=== PATIENT | male | born 1945 | race Caucasian/White ===

== ENCOUNTER 2017-05-13 13:24 | Outpatient (CLI) | payer MEDICARE, OTHER ==
[2005-08-19 16:04] VITALS: BP 149/81
[~2017-05-13] VITALS: Ht 175.3 cm; Wt 86.3 kg
[~2017-05-13 13:24] MED LIST: ASPIRIN E.C. 8181 MG PO; AVINZA60 MG PO; GLUCOPHAGE500 MG/TAB; GLUCOPHAGE500 MG/TAB PO; LASIX 20MG TABL20 MG PO; LIPITOR20 MG PO; NITROSTAT0.4 MG/TAB SL; TOPROL XL 25MG25 MG PO; ZESTRIL 5MG5 MG PO
[2017-05-13 13:57] VITALS: BP 134/65; PULSE 61
[2017-05-13 14:30] VITALS: BP 141/64; PULSE 64
[2017-05-13 14:45] VITALS: BP 141/64; PULSE 64
[2017-05-13 15:00] VITALS: BP 136/59; PULSE 58
[2017-05-13 15:15] VITALS: BP 135/71; PULSE 60
[2017-05-13 15:30] VITALS: BP 127/56; PULSE 60; TEMP 96.6
[2017-05-13 15:42] LABS: CSF APPEARANCE CLEAR; CSF COLOR COLORLESS
[2017-05-13 16:00] LABS: CSF POLYMORPHONUCLEAR 0 % (0-6)
[2017-05-13 16:04] LABS: CEREBROSPINAL TUBE #4
== END 2017-05-13 15:46 | disposition home or self-care (01) ==
LOC: COL.RAD 13:24
PROVIDERS: Psychiatry & Neurology Neurology
DX: G61.81 Chronic inflammatory demyelinating polyneuritis (principal); M62.81 Muscle weakness (generalized)

== ENCOUNTER 2017-05-28 12:00 | Outpatient (RCR) | payer MEDICARE, OTHER ==
[2005-08-19 16:04] VITALS: BP 149/81
[2017-05-25] VITALS (8 sets, daily range): BP systolic 110–130; BP diastolic 46–95; PULSE 51–60; TEMP 97.9–99
[2017-05-26] VITALS (9 sets, daily range): BP systolic 108–127; BP diastolic 45–82; PULSE 41–61; TEMP 97.8–98.9
[2017-05-27] VITALS (7 sets, daily range): BP systolic 117–143; BP diastolic 44–72; PULSE 51–55; TEMP 97–97.9
[~2017-05-28] VITALS: Ht 175.3 cm; Wt 85.3 kg
[~2017-05-28 12:00] MED LIST changes: +PRINIVIL5 MG PO
[2017-05-28 12:13] VITALS: BP 129/40; PULSE 50; TEMP 97.9
[2017-05-28 12:27] VITALS: BP 124/47; PULSE 49; TEMP 97.9
[2017-05-28 14:03] VITALS: BP 133/48; PULSE 50; TEMP 97.5
[2017-05-28 15:10] VITALS: BP 140/50; PULSE 50; TEMP 97.5
[2017-05-29] VITALS (13 sets, daily range): BP systolic 109–141; BP diastolic 41–75; PULSE 48–57; TEMP 97.8–97.9
== END 2017-05-29 18:52 | disposition home or self-care (01) ==
LOC: EUO 12:00 → MEDICAL 05-29 11:51 → EUO 05-29 18:52
DX: G61.81 Chronic inflammatory demyelinating polyneuritis (principal)
CPT/HCPCS: OP; J1200; J1459; J1569; J2930

== ENCOUNTER 2019-11-22 07:19 | Day surgery (SDC) | payer MEDICARE, OTHER ==
[2005-08-19 16:04] VITALS: BP 149/81
[~2019-11-22] VITALS: Ht 172.7 cm; Wt 72.3 kg
[2019-11-22] MEDS ORDERED: METHAVER 109 M1 EACH PO (08:03)
[2019-11-22] MEDS ORDERED: ELIQUIS 5MG PO (08:04)
[2019-11-22] MEDS ORDERED: ARYMO ER60 MG PO (08:05)
[2019-11-22] MEDS ORDERED: DEMADEX 20MG20 M1 PO (08:06)
[2019-11-22] MEDS ORDERED: PLAVIX 75MG TAB75 MG PO (08:07)
[2019-11-22 09:04] VITALS: BP 118/50; PULSE 60; TEMP 98
[2019-11-22 11:20] VITALS: BP 91/53; PULSE 60; TEMP 97.9
[2019-11-22 11:35] VITALS: BP 124/66; PULSE 60
[2019-11-22 11:50] VITALS: BP 98/34; PULSE 59
[2019-11-22 12:20] VITALS: BP 94/40; PULSE 60
--- NOTE | 2019-11-22 12:24 | NUR ---
1120 PATIENT RECIEVED TO [facility] VIA CART WITH KSENIA GARCIA AND TERESITA WELLINGTON. REPORT RECIEVED. DSG TO RLE NOTED TO BE CDI. RR EVNE AND UNLABORED. VSS. PATIENT REPORTS PAIN. RATES 10/21. 1130 NORCO 7.5MG PO GIVEN PER ORDER. PATIENT DRINKING PEPSI AND EATING PUDDING. VS REMAIN STBLE. PATIENT ALERT AND ORIENTED. 1200 PATIENT REPORTS CONTINUED PAIN, BUT REPORTS THAT IT IS IMPROVING.
[2019-11-22] MEDS ORDERED: NORCO 325 MG-51 TAB PO (12:34)
[2019-11-22 12:35] VITALS: BP 93/27; PULSE 60
--- NOTE | 2019-11-22 14:05 | NUR ---
1230 PATIENT ALERT AND ORIENTED. REPORTS IMPROVED COMFORT. IV DISCONTINUED. CATH INTACT. TOLERATED WELL. PATIENT GETTING SELF DRESSED. PATIENT'S AT BEDSIDE.
--- NOTE | 2019-11-22 14:07 | NUR ---
1300 PATIENT VOIDED APPROX 350 ML CLEAR, YELLOW URINE IN A URINAL. D/C'D TO POV VIA WHEELCHAIR WITH FAMILY. WRITEEN AND VERBAL DISCHARGE INSTRUCTIONS GIVEN TO PATIENT AND HIS . BOTH VERBALIZED UNDERSTANDING. QUESTIONS INVITED AND ANSWERED.
== END 2019-11-22 13:00 | disposition home or self-care (01) ==
LOC: SDCO 07:19
DX: L89.899 Pressure ulcer of other site, unspecified stage (principal); M00.9 Pyogenic arthritis, unspecified; I70.235 Atherosclerosis of native arteries of right leg with ulceration of other part of foot; E11.621 Type 2 diabetes mellitus with foot ulcer; I25.2 Old myocardial infarction; I13.0 Hypertensive heart and chronic kidney disease with heart failure and stage 1 through stage 4 chronic kidney disease, or unspecified chronic kidney disease; I50.9 Heart failure, unspecified; N18.9 Chronic kidney disease, unspecified; E11.22 Type 2 diabetes mellitus with diabetic chronic kidney disease; E78.00 Pure hypercholesterolemia, unspecified; F32.9 Major depressive disorder, single episode, unspecified; I34.0 Nonrheumatic mitral (valve) insufficiency; E78.5 Hyperlipidemia, unspecified; Z95.820 Peripheral vascular angioplasty status with implants and grafts; Z95.810 Presence of automatic (implantable) cardiac defibrillator; Z79.84 Long term (current) use of oral hypoglycemic drugs; Z95.1 Presence of aortocoronary bypass graft; Z79.899 Other long term (current) drug therapy; Z79.01 Long term (current) use of anticoagulants
CPT/HCPCS: J2250; J2704; J3010; J7030

== ENCOUNTER 2019-12-31 16:16 | Inpatient (IN) | payer MEDICARE, OTHER ==
[~2019-12-31] VITALS: Ht 172.7 cm; Wt 65.9 kg
[2019-12-31] VITALS (167 sets, daily range): BP systolic 114–120; BP diastolic 51–60; PULSE 70–72; TEMP 98–98.2; O2SAT 81–100
[~2019-12-31 16:16] MED LIST changes: +ARYMO ER60 MG PO; +DEMADEX 20MG20 M1 PO; +ELIQUIS 5MG PO; +METHAVER 109 M1 EACH PO; +NORCO 325 MG-51 TAB PO; +PLAVIX 75MG TAB75 MG PO
--- NOTE | 2019-12-31 17:30 | NUR ---
Patient arrives via stretcher with GCFD. Patient is transferred to ICU bed and monitors. Denies chest pain or pressure, does note mild dyspnea. VSS and as charted. Assessment as charted.
--- NOTE | 2019-12-31 17:55 | NUR ---
Dr. Gregory notified of patient arrival and prior VORB from Dr. Mcmanus to continue Heparin gtt upon patient arrival. states he will be down shortly. Care ongoing.
[2019-12-31 18:24] LABS: BASO % 0.3 % (0.0-2.0); EOS % 0.6 % (0-4.0); GRAN # 5.5 (1.4-6.5); GRAN % 79.4 % (42.2-75.2); HEMOGLOBIN 10.8 g/dl (13.5-18.0); LYMPH # 0.7 (1.2-3.4); LYMPH % 9.7 % (20.0-51.0); MEAN CELL VOLUME 97 fl (80.0-100.0); MEAN CORPUSCULAR HEMOGLOBIN 32 pg (27.0-31.0); MEAN CORPUSCULAR HGB CONC 33 g/dl (33.0-37.0); MONO # 0.7 (0.1-0.6); MONO % 9.7 % (1.7-9.3); PLATELET COUNT 276 K/mm3 (130-400); RED BLOOD COUNT 3.33 M/mm3 (4.20-5.60); REDCELL DISTRIBUTION WIDTH-CV 12.9 % (11.5-14.5)
[2019-12-31 18:26] LABS: HEMATOCRIT 32.4 % (42.0-52.0)
[2019-12-31 18:35] LABS: ALBUMIN 3.4 gm/dL (3.5-5.0); BILIRUBIN,TOTAL 1.6 mg/dL (0.0-1.0); CALCIUM 10.6 mg/dL (8.4-10.2); CHOLESTEROL RISK RATIO 4.8; CREATININE, serum 0.82 (0.66-1.25); MAGNESIUM 1.5 mg/dL (1.6-2.3); PHOSPHOROUS 3.2 mg/dL (2.5-4.5); POTASSIUM 4.8 mmol/L (3.4-5.0); TOTAL PROTEIN 6.7 gm/dL (6.4-8.2)
[2019-12-31 18:44] LABS: PARTIAL THROMBOPLASTIN TIME 213.3 SECONDS (26.0-37.0)
[2019-12-31] MEDS ORDERED: ZESTRIL 10MG10 MG PO (19:44)
[2019-12-31 21:29] LABS: PARTIAL THROMBOPLASTIN TIME 38.3 SECONDS (26.0-37.0)
[2020-01-01] VITALS (514 sets, daily range): BP systolic 111–124; BP diastolic 52–72; PULSE 59–80; TEMP 97.9–98.3; O2SAT 74–100
--- NOTE | 2020-01-01 00:56 | NUR ---
Notified Dr. Gregory that patient's 0000 HepXa was still greater than 2. Per the low-dose protocol, next HepXa should be drawn at 0200, however, because this is the third HepXa greater than 2 in the last six hours, Dr. Gregory agreed next HepXa could be drawn at 0400 with morning labs. Will continue to monitor.
[2020-01-01 05:45] LABS: BASO % 0.6 % (0.0-2.0); EOS # 0.2 (0.0-0.7); EOS % 2.9 % (0-4.0); GRAN # 4.5 (1.4-6.5); GRAN % 72.4 % (42.2-75.2); HEMATOCRIT 33.1 % (42.0-52.0); HEMOGLOBIN 10.9 g/dl (13.5-18.0); LYMPH # 0.7 (1.2-3.4); LYMPH % 11.9 % (20.0-51.0); MEAN CELL VOLUME 97 fl (80.0-100.0); MEAN CORPUSCULAR HEMOGLOBIN 32 pg (27.0-31.0); MEAN CORPUSCULAR HGB CONC 33 g/dl (33.0-37.0); MEAN PLATELET VOLUME 10.8 fl (7.4-10.4); MONO # 0.7 (0.1-0.6); MONO % 11.9 % (1.7-9.3); PLATELET COUNT 275 K/mm3 (130-400)
[2020-01-01 05:57] LABS: CALCIUM 10.6 mg/dL (8.4-10.2); CREATININE, serum 0.93 (0.66-1.25); MAGNESIUM 2.2 mg/dL (1.6-2.3); PHOSPHOROUS 3.1 mg/dL (2.5-4.5); POTASSIUM 3.9 mmol/L (3.4-5.0)
[2020-01-01 06:10] LABS: TROPONIN-I 0.168 ng/mL (0.000-0.035)
--- NOTE | 2020-01-01 08:54 | NUR ---
at patient bedside with . said ok to give patient plavix although hep xa has been high all night. She said to call pharmacy about switching to the PTT protocol due to the patient being on PO eliquis at home which can efffect hepxa levels. SHe wants patient NPO fo stress test tomorrow. and wants to start him in PO metoprolol.
--- NOTE | 2020-01-01 09:03 | NUR ---
Called back patients , Olga, to give her an update on the patients plan of care. Notified her of the patients stress test tomorrow and new medication.
--- NOTE | 2020-01-01 09:20 | NUR ---
Called pharmacy about patients heparin gtt and hepxa and talked about doing ptt protocol. He printed down the protocol for that and changed it in the AUG.
--- NOTE | 2020-01-01 10:50 | NUR ---
at patient bedside. Wants to start patient on aspirin, some NS at 60ml/hr, insulin high dose sliding scale, and said ok to trasnfer to medical floor.
--- NOTE | 2020-01-01 11:45 | NUR ---
Called Kvng, pharmacist, to clarify about starting rate of heparin since we are now dosing off PTT results and since the gtt has been off for over 12hours. He said ok to bolus patient and then to restart gtt at intial weight based dose.
--- NOTE | 2020-01-01 13:57 | NUR ---
Education Analyst met with patient to discuss discharge planning. Patient lives in [place] with his , Cierra (ph#[phone]) and sees Dr. Valadez for primary care. Patient picks up his medications from [facility] in [place] and reports no issues paying for his medications. Patient states his Cierra and daughter Awa (ph#[phone]) are his DPOA-HC but SW did not locate copy in EMR. Patient states he has two sons, Edgardo in [place] and Phillip in [place]. Patient has a walker and reports independence with ADLS. Patient reports he occasionally has a little trouble getting up off the stool. When this happens, patient states his can assist him or they can call their son, Edgardo. Patient plans to return home at discharge. SW contacted patient's , Cierra to discuss discharge planning. Cierra confirms the above information and reports she will try to have her daughter, Awa email a copy of DPOA-HC documents. If they cannot email them, Cierra states they can bring in a copy. Cierra reports plan is for patient to return home at discharge. SW will continue to follow.
--- NOTE | 2020-01-01 17:46 | NUR ---
Patient brought upstaird to room 349 in wheelchair with iv gtt's going. All pateint belongings with patient.
--- NOTE | 2020-01-01 20:30 | NUR ---
Received report from TERESITA Boyce. PT a/ox4. denies any pain or discomfort at this time. Pt sleeping upon entry but easily aroused to voice. Meds adminsitered. Heparin and fluids infusing to RAC, intact. Tele monitor in place. Needs met at this time. call light within reach.
[2020-01-02] VITALS (12 sets, daily range): BP systolic 107–128; BP diastolic 47–65; PULSE 59–60; TEMP 97.5–98.5
[2020-01-02 03:07] LABS: BASO # 0.1 (0.0-0.2); BASO % 0.8 % (0.0-2.0); EOS # 0.3 (0.0-0.7); EOS % 4.3 % (0-4.0); GRAN # 4.1 (1.4-6.5); GRAN % 67.1 % (42.2-75.2); HEMATOCRIT 33.2 % (42.0-52.0); HEMOGLOBIN 10.7 g/dl (13.5-18.0); LYMPH % 15.8 % (20.0-51.0); MEAN CELL VOLUME 99 fl (80.0-100.0); MEAN CORPUSCULAR HEMOGLOBIN 32 pg (27.0-31.0); MEAN CORPUSCULAR HGB CONC 32 g/dl (33.0-37.0); MEAN PLATELET VOLUME 10.6 fl (7.4-10.4); MONO # 0.7 (0.1-0.6); MONO % 11.3 % (1.7-9.3); PLATELET COUNT 207 K/mm3 (130-400); RED BLOOD COUNT 3.36 M/mm3 (4.20-5.60); REDCELL DISTRIBUTION WIDTH-CV 13.1 % (11.5-14.5)
[2020-01-02 03:18] LABS: CALCIUM 10.3 mg/dL (8.4-10.2); CREATININE, serum 0.85 (0.66-1.25)
--- NOTE | 2020-01-02 07:01 | NUR ---
Report given to TERESITA Stark.
--- NOTE | 2020-01-02 07:11 | NUR ---
Lying in bed with eyes closed. Opens eyes when name called out. Denies pain. Patient is aware that he will have stress test today. Heparin drip at 11.3mL/hr. Denies needs at this time.
--- NOTE | 2020-01-02 08:47 | NUR ---
Nuclear medicine here to take patient to stress test via wheel chair.
--- NOTE | 2020-01-02 10:56 | NUR ---
Patient back to room via wheelchair from stress test. Assisted into comfortable position in the bed. Lab in room. Patient denies additional needs at this time.
--- NOTE | 2020-01-02 12:37 | NUR ---
Heparin drip rate decreased to 10.3mL/hr per protocol. Patient lying in bed. NU Garcia, in room assessing patient. Patient denies any concerns or needs at this time.
--- NOTE | 2020-01-02 14:55 | NUR ---
Reviewed consent for left and right heart cath with the patient. Questions answered. Patient education material provided on heart cath. Patient verbalizes understanding and signs consent. Assisted patient up to chair. Gait slow with position changes and stiff. Patient denies additional needs at this time.
--- NOTE | 2020-01-02 18:32 | NUR ---
Lying in bed with eyes closed. Heparin drip rate decreased to 8.8mL/hr. Patient requests curtain down so that he could go to sleep. Patient denies additional needs at this time.
[2020-01-03] VITALS (15 sets, daily range): BP systolic 101–130; BP diastolic 47–79; PULSE 54–95; TEMP 97.7–98.3
--- NOTE | 2020-01-03 06:25 | NUR ---
IT WAS REPORTED TO THIS NURSE THAT THE PREVIOUS NURSE SEARCH THE ROOM, INCLUDING BAGS, AND THE BED FOR THE CELL PHONE THAT THE PATIENT STATES IS MISSING, SHE COULD NOT FIND IT. PATIENT REQUESTED THE "GREEN BAG" AND THEN SAID WELL I ALREADY LOOKED THROUGH THAT BAG. PATIENT HAS BEEN ABLE TO SLEEP DURING THE NIGHT. PATIENT HAS DENIED ANY PAIN. HE IS NPO FOR THE HEART CATH TODAY. DENIES ANY NEEDS AT THIS TIME. WILL REPORT OFF TO DAY SHIFT
[2020-01-03 07:35] LABS: MEAN CELL VOLUME 97 fl (80.0-100.0); MEAN CORPUSCULAR HGB CONC 33 g/dl (33.0-37.0); MEAN PLATELET VOLUME 11.1 fl (7.4-10.4); PLATELET COUNT 250 K/mm3 (130-400); RED BLOOD COUNT 2.92 M/mm3 (4.20-5.60)
[2020-01-03 07:42] LABS: INR 1.5 (0.8-3.0); PROTHROMBIN TIME 16.4 SECONDS (9.7-12.8)
[2020-01-03 07:51] LABS: CREATININE, serum 0.94 (0.66-1.25); POTASSIUM 3.5 mmol/L (3.4-5.0)
[2020-01-03 08:00] LABS: PARTIAL THROMBOPLASTIN TIME 109.3 SECONDS (26.0-37.0)
[2020-01-03 08:05] LABS: HEMATOCRIT 28.4 % (42.0-52.0); HEMOGLOBIN 9.4 g/dl (13.5-18.0); MEAN CORPUSCULAR HEMOGLOBIN 32 pg (27.0-31.0)
--- NOTE | 2020-01-03 11:00 | NUR ---
Patient alert and oriented, answers questions appropriately. Heart tones strong and even, pulses palpable. Heparin gtt infusing. No c/o at this time.
--- NOTE | 2020-01-03 14:32 | NUR ---
OT is recommending home with family assistance vs post-acute rehab. SW met with the patient to review discharge plan and to discuss OT's recommendation. The patient reports that he does not want to go to a facility for rehab. SW discussed home health. The patient reports that he is not interested in that either and plans to return home with his . SW attempted to contact the patient's , Cierra, to review discharge plan. Her voicemail was full and SW was not able to leave a message. SW to continue to follow.
--- NOTE | 2020-01-03 15:15 | NUR ---
Patient to labeling strategist at this time.
--- NOTE | 2020-01-03 15:55 | NUR ---
SEE MERGE DOCUMENTATION FOR MEDICATION ADMINISTRATION TIMES AND INTRA/POST PROCEDURE SEDATION ASSESSMENTS.
--- NOTE | 2020-01-03 17:00 | NUR ---
Patient returns from cardiac catherization via bed with labor economist staff. Patient to remain flat until 2029, reviewed this with patient. Right groin site with dressing CDI, no hematoma visualized or palpated. Pulses intact to BLE. No c/o at this time.
[2020-01-04 03:58] VITALS: BP 90/53; PULSE 59; TEMP 98.3
--- NOTE | 2020-01-04 06:14 | NUR ---
PATIENT HAS DENIED MANY NEEDS THROUGH THE NIGHT. MANAGER REGISTRATION HAS BEEN TAKING PATIENT TO THE BATHROOM. IV WAS CHANGED BECAUSE THE PREVIOUS SITE WAS LEAKING. LEFT HAND IV WITH FLUIDS GOING. PATIENT THINKS HE IS HAVING SOMETHING DONE THIS MORNING WITH HIS KIDNEYS BUT THIS NURSE IS UNAWARE OF ANYTHING. PATIENT DENIES ANY PAIN AND ANY OTHER NEEDS, WILL REPORT OFF TO DAY SHIFT.
[2020-01-04 07:47] VITALS: BP 97/38; PULSE 57; TEMP 97.5
[2020-01-04 09:28] LABS: BASO % 0.6 % (0.0-2.0); EOS # 0.2 (0.0-0.7); EOS % 2.5 % (0-4.0); GRAN # 4.8 (1.4-6.5); GRAN % 73.9 % (42.2-75.2); HEMOGLOBIN 10.6 g/dl (13.5-18.0); LYMPH # 0.7 (1.2-3.4); LYMPH % 10.9 % (20.0-51.0); MEAN CELL VOLUME 97 fl (80.0-100.0); MEAN CORPUSCULAR HEMOGLOBIN 32 pg (27.0-31.0); MEAN CORPUSCULAR HGB CONC 33 g/dl (33.0-37.0); MEAN PLATELET VOLUME 10.7 fl (7.4-10.4); MONO # 0.8 (0.1-0.6); MONO % 11.8 % (1.7-9.3); PLATELET COUNT 249 K/mm3 (130-400); RED BLOOD COUNT 3.35 M/mm3 (4.20-5.60); REDCELL DISTRIBUTION WIDTH-CV 13.1 % (11.5-14.5)
[2020-01-04 09:31] LABS: HEMATOCRIT 32.4 % (42.0-52.0)
[2020-01-04 09:48] LABS: CALCIUM 10.7 mg/dL (8.4-10.2); CREATININE, serum 1.13 (0.66-1.25); POTASSIUM 4.9 mmol/L (3.4-5.0)
--- NOTE | 2020-01-04 10:26 | NUR ---
Patient alert and oriented, answers questions appropriately. See assessment. Right groin site with dressing CDI, no hematoma noted. Pulses palpable to RLE. No c/o chest pain or pressure. No other c/o at this time.
[2020-01-04 11:34] VITALS: BP 111/52; PULSE 60; TEMP 97.8
--- NOTE | 2020-01-04 14:53 | NUR ---
SW met with the patient to discuss PT's recommendation of post-acute rehab vs home health. The patient reports that he still does not want to do post-acute rehab or have home health. He states that he plans to return home with his and that he has help from her, his son, [id number], and three grandchildren. He states that his son and [id number] live next door to them. SW attempted to contact the patient's , Cierra, to review discharge plan. The patient did not answer and her voicemail was full. SW to continue to follow.
[2020-01-04 15:36] VITALS: BP 111/57; PULSE 60; TEMP 97.6
[2020-01-04 19:21] VITALS: BP 110/40; PULSE 59; TEMP 98
--- NOTE | 2020-01-04 22:00 | NUR ---
Resting in bed at this time. Groin site clean, dry and intact. Soft with no hematoma. All questions and concerns addressed at this time.
[2020-01-04 23:33] VITALS: BP 112/52; PULSE 59; TEMP 98.2
[2020-01-05 03:31] VITALS: BP 111/57; PULSE 118; TEMP 97.8
--- NOTE | 2020-01-05 07:21 | NUR ---
Bedside report given to TERESITA Sands. Patient care transfered.
[2020-01-05 07:25] VITALS: BP 120/54; PULSE 60; TEMP 97.5
[2020-01-05 08:22] LABS: BASO % 0.5 % (0.0-2.0); EOS # 0.2 (0.0-0.7); EOS % 2.4 % (0-4.0); GRAN # 6.1 (1.4-6.5); GRAN % 79.4 % (42.2-75.2); HEMOGLOBIN 11.9 g/dl (13.5-18.0); LYMPH # 0.5 (1.2-3.4); LYMPH % 7.1 % (20.0-51.0); MEAN CELL VOLUME 97 fl (80.0-100.0); MEAN CORPUSCULAR HEMOGLOBIN 32 pg (27.0-31.0); MEAN CORPUSCULAR HGB CONC 33 g/dl (33.0-37.0); MEAN PLATELET VOLUME 10.9 fl (7.4-10.4); MONO # 0.8 (0.1-0.6); MONO % 9.9 % (1.7-9.3); PLATELET COUNT 288 K/mm3 (130-400); RED BLOOD COUNT 3.72 M/mm3 (4.20-5.60); REDCELL DISTRIBUTION WIDTH-CV 13.2 % (11.5-14.5)
[2020-01-05 08:25] LABS: HEMATOCRIT 36.1 % (42.0-52.0)
[2020-01-05 08:31] LABS: CALCIUM 11.3 mg/dL (8.4-10.2); CREATININE, serum 1.15 (0.66-1.25); POTASSIUM 4.1 mmol/L (3.4-5.0)
[2020-01-05 11:55] VITALS: BP 108/49; BP 119/60; PULSE 59; PULSE 60; TEMP 97.6
--- NOTE | 2020-01-05 11:55 | NUR ---
Patient alert and oriented, answers questions appropriately. See assessment. Heart tones strong and even, pulses palpable. Right groin site with no hematoma noted, dressing changed to band aid. No c/o at this time time.
--- NOTE | 2020-01-05 14:50 | NUR ---
1345: Patients daughter called for status update. Reviewed with daughter that we are checking additional lab work and looking into post acute rehab for patient. Patients daughter starting yelling that patient "will not go to rehab anywhere, he will come home.". Attempted to tell daughter that Dr Patterson recommends post acute rehab and that patient himself stated that he "can't go home" because of weakness. Patients daughter would not listen to or accept this plan of care. Daughter then states "you have had him there for a week and have done nothing for him". Attempted to relay to daughter that patient has had a heart cath and medication changes. Daughter again refused to listen. Offered to daughter to let Dr Patterson know of her concerns and he will call her when he is not busy. Daughter was hesitant with this, as she wanted to talk to Dr Patterson immediately, again offered to relay message to Dr Patterson. Daughter accepted this. Phone conversation ended. Approx fifteen minutes later, received a call from ICU, patients daughter had called there attempting to talk to someone about patient. Also received notice from medical unit that patients is attempting to call their unit looking for someone to talk to about his plan of care. did reach surgical unit and talked to another nurse, stating "my will not go anywhere but home', nurse attempted to let know he knew nothing about the patient and could transfer the phone call, became irate and hung up.
--- NOTE | 2020-01-05 15:24 | NUR ---
SW attended clinical rounds. The hospitalist discussed post-acute rehab. The patient reports that he had a bad experience with the last SNF he went to and is not interested in going back to another SNF. The MANAGER MISSION informed SW that the patient got very weak in their session this morning and needed mod assist. SW followed up with the patient. The patient reports that he does not feel safe getting up without having someone nearby him. SW discussed post-acute rehab again and how IPR is an option. The patient reports that he does not want to go to a SNF, but would consider IPR and was agreeable for SW to consult IPR Director. SW consulted IPR Director, Arabella. SW then contacted and updated the patient's , Cierra. Cierra expressed her frustrations with not getting updates from the clinical team, but states that she feels better now after speaking to risk management. SW provided support. Cierra reports that they were against post-acute rehab. SW explained IPR. Cierra reports that if the patient is wanting IPR, then she would be supportive of it and thinks that it would be great. Cierra requested that SW contact their daughter, Awa Richardson (ph#[phone]), to also update. SW attempted to contact Awa. SW left her a voicemail. SW to continue to follow.
--- NOTE | 2020-01-05 16:44 | NUR ---
The patient's daughter, Awa, returned RASHAAD's phone call. The patient's , Cierra, was with Awa. Awa expressed her frustration and concerns. RASHAAD provided support. RASHAAD provided her with an update and discussed IPR. Awa reports that she is also supportive of the patient going to IPR. Awa reports that she plans on bringing food up to the hospital and will bring it to the ED entrance. RASHAAD notified the patient's RN of this. RASHAAD to continue to follow.
[2020-01-05 16:54] VITALS: BP 110/52; PULSE 60; TEMP 97.5
[2020-01-05 19:33] VITALS: BP 111/48; PULSE 58; TEMP 98.3
--- NOTE | 2020-01-05 21:00 | NUR ---
PT IN BED, TAKES HS MEDS WITHOUT PROBLEM. DENIES PAIN BUT TAKES SCHEDULED PAIN MEDS. REPORTS FEELING WEAK. SL TO LEFT HAND FLUSHES WELL. IS ALERT AND ORIENTED X3. DENIES NEEDS AT THIS TIME.
[2020-01-05 21:22] LABS: PTH,INTACT 224.6 pg/mL (6.6-88.9)
[2020-01-05 23:46] VITALS: BP 113/58; PULSE 61; TEMP 98.6
[2020-01-06 03:35] VITALS: BP 109/51; PULSE 68; TEMP 98
--- NOTE | 2020-01-06 04:00 | NUR ---
DENIES NEEDS AT THIS TIME. USES URINAL AT BEDSIDE.
[2020-01-06 07:35] VITALS: BP 108/43; PULSE 60; TEMP 99.3
[2020-01-06 09:06] LABS: CALCIUM 10.6 mg/dL (8.4-10.2); CREATININE, serum 1.12 (0.66-1.25); MAGNESIUM 1.7 mg/dL (1.6-2.3); POTASSIUM 3.8 mmol/L (3.4-5.0)
[2020-01-06 11:35] VITALS: BP 99/52; PULSE 53; TEMP 98.3
[2020-01-06 16:00] VITALS: BP 107/54; PULSE 59; TEMP 98.1
--- NOTE | 2020-01-06 18:30 | NUR ---
Alert. Complained of poor appetite for two months. Occasional coughing. Right lung sounds coarse. Spits saliva into cup frequently. Sat at side of bed several times today. Worked with physical therapy. Daughter called and very concerned about patient condition. Hospitalist talked to daughter per phone. Daughter came to hospital and tank house operator helper escorted her to patient room to see him for brief time.
[2020-01-06 19:33] VITALS: BP 101/50; PULSE 63; TEMP 98
--- NOTE | 2020-01-06 21:15 | NUR ---
PT HAS COARSE CONGESTION TO LUNG NIEVES, COUGHS UP WHITE SPUTUM. SL TO LEFT HAND FLUSHES WELL. HOB ELEVATED FOR COMFORT WITH BREATHING. USES URINAL AT BEDSIDE. TAKES HS MEDS AT THIS TIME. FLAT AFFECT.
[2020-01-06 23:36] VITALS: BP 126/91; PULSE 64; TEMP 98.3
[2020-01-07 03:30] VITALS: BP 100/51; PULSE 61; TEMP 98.3
--- NOTE | 2020-01-07 06:00 | NUR ---
PT REPOSITIONED IN BED BY STAFF. DENIES NEEDS. LUNGS LESS COARSE THIS AM.
[2020-01-07 06:30] LABS: BASO % 0.3 % (0.0-2.0); EOS # 0.1 (0.0-0.7); EOS % 0.5 % (0-4.0); GRAN # 8.9 (1.4-6.5); GRAN % 85.3 % (42.2-75.2); LYMPH # 0.6 (1.2-3.4); LYMPH % 6.1 % (20.0-51.0); MEAN CELL VOLUME 97 fl (80.0-100.0); MEAN CORPUSCULAR HEMOGLOBIN 32 pg (27.0-31.0); MEAN CORPUSCULAR HGB CONC 33 g/dl (33.0-37.0); MEAN PLATELET VOLUME 11.1 fl (7.4-10.4); MONO # 0.8 (0.1-0.6); MONO % 7.2 % (1.7-9.3); PLATELET COUNT 271 K/mm3 (130-400); RED BLOOD COUNT 3.12 M/mm3 (4.20-5.60); REDCELL DISTRIBUTION WIDTH-CV 13.4 % (11.5-14.5)
[2020-01-07 06:37] LABS: HEMATOCRIT 30.3 % (42.0-52.0)
[2020-01-07 06:42] LABS: CREATININE, serum 1.21 (0.66-1.25); POTASSIUM 3.9 mmol/L (3.4-5.0)
[2020-01-07 08:09] VITALS: BP 102/54; PULSE 67; TEMP 98.4
[2020-01-07 12:40] VITALS: BP 105/48; PULSE 72; TEMP 98.2
[2020-01-07 15:50] VITALS: BP 92/45; PULSE 63; TEMP 98.3
[2020-01-07 18:00] VITALS: BP 105/49; PULSE 77
--- NOTE | 2020-01-07 18:30 | NUR ---
No complaints. Rare cough noted today. Transferred to chair with physical therapy. Required two staff assist to return to bed for c/o weakness.
--- NOTE | 2020-01-07 19:37 | NUR ---
PATIENT RESTING IN BED DURING CHANGE OF SHIFT REPORT FROM DAY SHIFT NURSE. DENIES ANY NEEDS OR CONCERNS.
[2020-01-07 20:30] VITALS: BP 102/59; PULSE 68; TEMP 97.7
--- NOTE | 2020-01-07 20:58 | NUR ---
OBSERVED SALINE LOCK TO LEFT HAND LEAKING WITH ATTEMPT TO FLUSH SL WITH SALINE. PATIENT DENIES CHEST PAIN AND REPORT HAS SOME SHORTNESS OF BREATH THAT IS NORMAL FOR HIM. DENIES ANY NEEDS OTHER THAN FEELING COLD AND REQUESTING TO HAVE BLANKET PUT ON HIM, ANOTHER BLANKET APPLIED WITH NO OTHER NEEDS REPORTED BY PATIENT.
[2020-01-08 00:35] VITALS: BP 109/46; PULSE 59; TEMP 98.3
--- NOTE | 2020-01-08 03:00 | NUR ---
PATIENT SLEEPING, DOES NOT WAKE WHEN DOOR TO ROOM IS OPENED BY STAFF. TELE CONTINUES, NO IV ACCESS DUE TO VENIPUNCTURE DIFFICULTY WITH UNSUCCESSFULY ATTEMPTS PREVIOUSLY. PATIENT WITH NO C/O.
[2020-01-08 05:00] VITALS: BP 122/48; PULSE 71; TEMP 97.5
[2020-01-08 06:48] LABS: BASO % 0.2 % (0.0-2.0); EOS % 0.2 % (0-4.0); GRAN # 10.3 (1.4-6.5); GRAN % 84.9 % (42.2-75.2); LYMPH # 0.5 (1.2-3.4); LYMPH % 4.5 % (20.0-51.0); MEAN CELL VOLUME 97 fl (80.0-100.0); MEAN CORPUSCULAR HGB CONC 33 g/dl (33.0-37.0); MEAN PLATELET VOLUME 10.8 fl (7.4-10.4); MONO # 1.2 (0.1-0.6); MONO % 9.5 % (1.7-9.3); PLATELET COUNT 288 K/mm3 (130-400); RED BLOOD COUNT 3.11 M/mm3 (4.20-5.60); REDCELL DISTRIBUTION WIDTH-CV 13.4 % (11.5-14.5)
[2020-01-08 06:57] LABS: HEMOGLOBIN 9.9 g/dl (13.5-18.0); MEAN CORPUSCULAR HEMOGLOBIN 32 pg (27.0-31.0)
[2020-01-08 07:01] LABS: CREATININE, serum 1.38 (0.66-1.25); POTASSIUM 4.5 mmol/L (3.4-5.0)
[2020-01-08 07:19] VITALS: BP 112/55; PULSE 57; TEMP 98
--- NOTE | 2020-01-08 07:20 | NUR ---
PATIENT SLEEPING IN BED DURING CHANGE OF SHIFT REPORT GIVEN TO DAY SHIFT NURSEJULIA. INFORMED OF NO IV ACCESS CURRENTLY DUE TO VENIPUNCTURE FAILED ATTEMPTS TO RESTART SALINE LOCK.
[2020-01-08 11:11] VITALS: BP 102/45; PULSE 58; TEMP 97.6
--- NOTE | 2020-01-08 12:33 | NUR ---
First visit from the supervisor laboratory animal facility. No needs right now.
[2020-01-08 16:44] VITALS: BP 99/51; PULSE 68; TEMP 97.2
--- NOTE | 2020-01-08 18:47 | NUR ---
Patient resting in bed at this time. Patient is alert and oriented, but is slow to answer questions. Patient has a productive cough, speutum is pale yellow and moderately thick. Lungs have crackles in all diego. VS WNL. Telemetry in place. While getting 1600 VS, aide called and stated that patient appeared to be having increased difficulty breathing. Upon assessment, patient was audibly wheezing in inhalation and exhalation, auscultation indicated corse crackles in all diego. Notified hospitalist of change in condition and recieved orders for CXR, labs, and speutum sample. Awaiting results of tests at this time, passed on to oncoming nurse. Patient denies further needs at this time, call light within reach.
[2020-01-08 19:19] VITALS: BP 93/47; PULSE 61; TEMP 97.8
[2020-01-09 00:20] VITALS: BP 106/51; PULSE 72; TEMP 98
--- NOTE | 2020-01-09 01:17 | NUR ---
Patient's daughter called this nurse and stated her dad was having troubles breathing and had to get off the phone d/t shortness of breath. Patient assessed and noted to have audible breath sounds from the doorway of his room. Upon listening to his lungs, this nurse noted rhonchi mainly in the right lung and the lower left lobe. Diminished and crackles noted in the upper left lobe. Patient did not appear to be in any distress. Oxygen saturation at 93% per RT. Continues on room air. Patient voided 150ml at 2030. Patient noted to have +3 pitting edema to bilateral upper extremities. +1 to bilateral lower extremities. Patient very slow to answer questions and it appears that it takes a lot of energy for him to speak with staff. NU [place]ton notified about breath sounds/difficulty breathing. Orders reviewed and carried out. At 0115 patient had not urinated again, and bladder scan shows 110ml. Kath updated on this. No new orders at this time. was updated at about 2230 about patient condition. Patient resting in bed with eyes closed at this time with no acute distress noted. Will continue to monitor patient closely.
[2020-01-09 04:38] VITALS: BP 103/64; PULSE 60; TEMP 97.8
[2020-01-09 07:16] VITALS: BP 104/39; PULSE 65; TEMP 97.7
[2020-01-09 07:28] LABS: HEMOGLOBIN 10.3 g/dl (13.5-18.0); MEAN CELL VOLUME 96 fl (80.0-100.0); MEAN CORPUSCULAR HEMOGLOBIN 32 pg (27.0-31.0); MEAN CORPUSCULAR HGB CONC 33 g/dl (33.0-37.0); MEAN PLATELET VOLUME 11.1 fl (7.4-10.4); PLATELET COUNT 326 K/mm3 (130-400); RED BLOOD COUNT 3.23 M/mm3 (4.20-5.60); REDCELL DISTRIBUTION WIDTH-CV 13.2 % (11.5-14.5)
[2020-01-09 07:30] LABS: HEMATOCRIT 31.1 % (42.0-52.0)
[2020-01-09 07:33] LABS: CALCIUM 11.1 mg/dL (8.4-10.2); CREATININE, serum 1.44 (0.66-1.25); POTASSIUM 3.8 mmol/L (3.4-5.0)
[2020-01-09 08:39] LABS: BAND 6 % (0-10); LYMPHOCYTE 2 % (20.0-51.0); METAMYELOCYTE 1 % (0-0); NEUTROPHILS 83 % (42.0-75.2)
[2020-01-09 08:40] LABS: OVALOCYTES 1+; PLATELET ESTIMATE NORMAL (NORMAL)
[2020-01-09 08:42] LABS: ANISOCYTOSIS 1+
--- NOTE | 2020-01-09 09:00 | NUR ---
PATIENT HAD AN INCONTINENT VOID. PATIENT BLADDER SCANNED PER REQUEST. POST-VOID RESIDUAL REMAINING IN BLADDER IS 327 ML. NOTIFIED. NO ORDERS GIVEN AT THIS TIME.
--- NOTE | 2020-01-09 09:23 | NUR ---
PATIENT HUMBERTO FOR CT SCAN VIA BED. WILL WAIT FOR PATIENT ARRIVAL BACK TO ROOM 349.
--- NOTE | 2020-01-09 09:40 | NUR ---
PATIENT ARRIVED BACK TO ROOM [address] SCAN. PATIENT SETTELED INTO ROOM. CALL LIGHT WITHIN REACH.
[2020-01-09 11:20] VITALS: BP 108/45; PULSE 62; TEMP 98.4
[2020-01-09 16:08] VITALS: BP 112/49; PULSE 58; TEMP 99
--- NOTE | 2020-01-09 16:37 | NUR ---
RASHAAD contacted the patient's , Cierra, to update and review discharge plan. Cierra reports that her and her daughter, Awa, feel like things are movely slowely with the patient here and that he is getting worse. Cierra reports that she and Awa are on their way to the hospital now and want the patient to transfer to [facility]. RASHAAD notified the hospitalist, powerhouse tender, and the housecleaner floor. Risk Management was also notified. The patient's daughter, Awa, then arrived at the hospital. RASHAAD and Jewelry Making Instructor met her at the ED entrance. Awa expressed her concerns and how she and Cierra want the patient transferred to [facility] today. The hospitalist contacted Awa and Awa expressed her wishes. The hospitalist contacted [facility] and they are able to accept the patient as a transfer. RASHAAD contacted and updated Awa. Awa and are agreeable to the transfer. The patient is to transfer to [facility] today, 01/08, via [facility] around [id number]. RASHAAD contacted and informed the patient's daughter, Awa, of time. She was agreeable to the time. No additional needs at this time.
[2020-01-09 18:13] VITALS: BP 112/49; PULSE 58; TEMP 99
--- NOTE | 2020-01-09 18:45 | NUR ---
PATIENT PERSONAL BELONGINGS GATHERED. PATIENT TRANSFERRED VIA EMS.
--- NOTE | 2020-01-09 19:19 | NUR ---
REPORT CALLED TO LIZZETTE SANCHEZ RN AT [facility] IN [place]. PATIENT TRANFERRED VIA EMS.
== END 2020-01-09 18:45 | disposition short-term general hospital (02) | DRG 280 ==
LOC: ICU 16:16 → SURG 01-01 18:13
PROVIDERS: Hospitalist; ADMIT Internal Medicine
PROC: 4A023N6 Measurement of Cardiac Sampling and Pressure, Right Heart, Percutaneous Approach (ICD-10-PCS; principal; 2020-01-03)
PROC: B2111ZZ Fluoroscopy of Multiple Coronary Arteries using Low Osmolar Contrast (ICD-10-PCS; 2020-01-03)
DX: I21.4 Non-ST elevation (NSTEMI) myocardial infarction (principal); I50.23 Acute on chronic systolic (congestive) heart failure; J69.0 Pneumonitis due to inhalation of food and vomit; E87.1 Hypo-osmolality and hyponatremia; N17.9 Acute kidney failure, unspecified; I25.10 Atherosclerotic heart disease of native coronary artery without angina pectoris; I48.91 Unspecified atrial fibrillation; E83.42 Hypomagnesemia; E83.51 Hypocalcemia; E87.6 Hypokalemia; E78.5 Hyperlipidemia, unspecified; F32.9 Major depressive disorder, single episode, unspecified; Z95.1 Presence of aortocoronary bypass graft; Z79.01 Long term (current) use of anticoagulants
CPT/HCPCS: 99223-AI; 99231-AI; 99232-AI; 99233-AI; 99239; A9500; C1751; C1760; C1769; C1894; J1644; J1650; J1815; J1940; J2250; J2543; J2785; J3010; J3475; J7030; J7040; Q9967